=== PATIENT | male | born 2000 | race American Indian/Alaskan Native ===

== ENCOUNTER 2021-11-08 11:09 | Inpatient (IN) | payer SELFPAY ==
--- NOTE | 2021-11-08 11:33 | Emergency Department Report ---
HPI - General Chief Complaint: Chest Pain Time Seen by Provider: 11/08/21 11:25 - HPI HPI: 30 minutes of pleuritic right anterior nonradiating sharp moderate to severe chest pain not associated with any nausea diaphoresis shortness of breath. He does report a mild cough with this that is dry, nonproductive. He denies nausea vomiting fever chills or any other associated symptoms. Breathing makes it worse and nothing makes it better he has taken no medicines for this. He has a family history remarkable for DVTs on her mother side. ED Past Medical Hx - Past Medical History Previous Medical History?: No - Surgical History Past Surgical History?: No - Family History Family history: other (Thromboembolic disease) - Social History Smoking Status: Never Smoker Substance Use Type: None - Medications Home Medications: Home Medications Medication Instructions Recorded Confirmed Last Taken Type Ibuprofen [Motrin] 600 mg PO Q6H PRN 10 Days #40 11/08/21 Unknown Rx tablet ED Review of Systems ROS: Stated complaint: CHEST PAIN Other details as noted in HPI Other: All other systems reviewed and negative. Physical Exam - Physical Exam Vital Signs: Vital Signs 11/08/21 11:21 Temperature 97.7 F Pulse Rate 80 Respiratory 18 Rate Blood Pressure 115/75 [Right] O2 Sat by Pulse 97 Oximetry Physical Exam: Physical Exam: Constitutional: AAOX3. No acute distress. No diaphoresis. HENT: Normocephalic. Pupils equal and reactive. No throat edema or erythema. Neck: No neck rigidity or tenderness. Cardiovascular: Heart sounds: No murmur. Normal rate and regular rhythm. Pulses: Intact distal pulses. Lungs: No wheezing or rales. Chest wall: No tenderness. Abdominal: No distension. No mass/pulsatile mass. No abdominal tenderness, guarding nor rebound. Musculoskeletal: Normal range of motion. No edema, No calf TTP. Skin: Warm and dry. Neurological: Alert and oriented to person, place, and time. Psychiatric: Mood and affect normal. Normal cognition and memory. Normal judgement. ED Course Vital Signs 11/08/21 11:21 Temperature 97.7 F Pulse Rate 80 Respiratory 18 Rate Blood Pressure 115/75 [Right] O2 Sat by Pulse 97 Oximetry - Reevaluation(s) Reevaluation #1: 11/08/21 12:01 EKG done interpreted at 11:47 AM showed a rate of 67, normal. The rhythm is sinus rhythm, normal. There is ST segment elevation diffusely consistent with possible pericarditis. There is minimal [place] depression. Reevaluation #2: 11/08/21 13:06 The patient CBC chemistries D-dimer and chest x-ray are all within normal limits. His EKG suspicious for pericarditis but he says that his pain is completely gone at this time. I will discharge him he will follow-up with his PCP as soon as possible. I will put him on Motrin 600 mg for 10 days. ED Medical Decision Making - Lab Data Result diagrams: 11/08/21 11:34 11/08/21 11:34 Critical care attestation.: If time is entered above; I have spent that time in minutes in the direct care of this critically ill patient, excluding procedure time. ED Disposition Clinical Impression: Chest pain Disposition: 01 HOME / SELF CARE / HOMELESS Is pt being admited?: No Does the pt Need Aspirin: No Condition: Stable Instructions: Nonspecific Chest Pain, Adult Prescriptions: Ibuprofen [Motrin] 600 mg PO Q6H PRN 10 Days #40 tablet PRN Reason: Pain Time of Disposition: 13:10 Print Language: ETHIOPIAN
[2021-11-08] MEDS ORDERED: KETOROLAC 30 MG/1 ML INJ IV SCH (12:30)
[2021-11-08 12:38] LABS: Eosinophils # (Auto) 0.1 K/mm3 (0.0-0.4); Eosinophils % (Auto) 3.6 % (0.0-4.3); Hematocrit 45.3 % (35.5-45.6); Hemoglobin 15.4 gm/dl (11.8-15.2); Lymphocytes # (Auto) 1.6 K/mm3 (1.2-5.4); Lymphocytes % (Auto) 39.6 % (13.4-35.0); Mean Corpuscular HGB Conc 34 % (32-34); Mean Corpuscular Volume 88 fl (84-94); Monocytes # (Auto) 0.3 K/mm3 (0.0-0.8); Monocytes % (Auto) 7.4 % (0.0-7.3); Platelet Count 238 K/mm3 (140-440); Red Blood Count 5.16 M/mm3 (3.65-5.03); Red Cell Distribution Width 13.6 % (13.2-15.2)
[2021-11-08 12:39] LABS: Alanine Aminotransferase 9 units/L (7-56); Albumin 4.3 g/dL (3.9-5); BUN/Creatinine Ratio 19; Blood Urea Nitrogen 17 mg/dL (9-20); Hemolysis Index 26
--- NOTE | 2021-11-08 13:36 | XRay Report ---
CHEST 1 VIEW INDICATION / CLINICAL INFORMATION: Chest Pain. COMPARISON: None available. FINDINGS: SUPPORT DEVICES: None. HEART / MEDIASTINUM: No significant abnormality. LUNGS / PLEURA: Large right pneumothorax displacement of the pleural surface measuring up to 6.2 cm. Lungs otherwise clear. Minimal effacement of the right cardiac margin suggested. BONES: No significant osseous abnormality. ADDITIONAL FINDINGS: No significant additional findings. IMPRESSION: 1. Large right pneumothorax minimal tension component not excluded. CRITICAL RESULT Time of Discovery (PARACHUTE SUPERVISOR/CDT): 12:30 Time of Communication (PARACHUTE SUPERVISOR/CDT): 1231 Licensed Practitioner Receiving Report: Dr. Brown Read-Back Performed: Yes. Signer Name: Shlomo Thomas II, MD Signed: 11/08/2021 1:32 PM Workstation Name: [id number]
[2021-11-08] MEDS ORDERED: LIDOCAINE 1%/EPINEPHRINE 1:100,000 VIAL (20 ML) INFILTRATI NR (14:00)
[2021-11-08] MEDS ORDERED: KETAMINE 500 MG/5 ML VIAL MDV IV ONE (14:14)
[2021-11-08] MEDS ORDERED: LORazepam 2 MG/ML VIAL IV ONE (14:26)
[2021-11-08] MEDS ORDERED: LIDOCAINE 2%/EPINEPHRINE 1:100,000 VIAL (20 ML) INFILTRATI ONE (15:00)
[2021-11-08] MEDS ORDERED: MORPHINE 2 MG/1 ML INJ IV ONE ×2 (15:55→18:00)
[2021-11-08] MEDS ORDERED: ONDANSETRON 4 MG/2 ML INJ IV ONE (15:55)
[2021-11-08] MEDS ORDERED: ALBUTEROL 2.5 MG/3 ML NEBU IH PRN (16:03)
[2021-11-08] MEDS ORDERED: ONDANSETRON 4 MG/2 ML INJ IV PRN (16:03)
[2021-11-08] MEDS ORDERED: ACETAMINOPHEN 325 MG TAB PO PRN (16:03)
--- NOTE | 2021-11-08 16:03 | History and Physical Report ---
History of Present Illness Chief complaint: My chest hurts on the right History of present illness: 21 YO Male with no past medical history presents to ED for evaluation. Patient reports "my chest hurts on the right and is hard to breathe". Patient states that he has experienced a sudden onset right-sided chest pain with concomitant shortness of breath. EMS was notified and upon arrival the patient was found to be in distress and subsequent transported to [facility] for further care and evaluation of the aforementioned symptoms. The patient was seen and evaluated in the emergency department. All lab and imaging studies reviewed. Patient underwent chest x-ray and was found to have large right pneumothorax comprising 90% of the right lung volume. Patient underwent chest tube placement in the emergency department with improvement in symptoms. Patient placed on continuous low wall suction. Patient admitted to medical floor due to increased risk of worsening sepsis. Patient denies fever, chills, chest pain, palpitation, productive cough, skin rash, recent ill contacts, trauma, or known exposure to COVID-19. No prior admission for review. No medication listed at time of admission for reconciliation. Advanced care planning conducted in the ED. Past History Past Medical History: No medical history, other (Reviewed) Past Surgical History: No surgical history, Other (Reviewed) Social history: single. denies: smoking, alcohol abuse, prescription drug abuse Family history: hypertension Medications and Allergies Allergies Allergy/AdvReac Type Severity Reaction Status Date / Time No Known Allergies Allergy Verified 11/08/21 12:31 Home Medications Medication Instructions Recorded Confirmed Last Taken Type Ibuprofen [Motrin] 600 mg PO Q6H PRN 10 Days #40 11/08/21 Unknown Rx tablet Review of Systems Constitutional: no weight loss, no weight gain, no chills, no sweats Ears, nose, mouth and throat: no ear pain, no nasal congestion, no nasal discharge, no sinus pressure Cardiovascular: chest pain, shortness of breath, other (Right-sided chest pain) Respiratory: cough, no cough with sputum, no excessive sputum, no hemoptysis Gastrointestinal: no abdominal pain, no nausea, no diarrhea, no constipation Genitourinary Male: no dysuria, no hematuria, no flank pain, no discharge, no urinary frequency, no nocturia Rectal: no pain, no incontinence, no bleeding Musculoskeletal: no neck stiffness, no neck pain, no shooting arm pain, no arm numbness/tingling, no low back pain, no shooting leg pain, no leg numbness/tingling Integumentary: no rash, no pruritis, no redness, no wounds, no jaundice, no boils Neurological: no head injury, no transient paralysis, no weakness, no parathesias, no numbness, no tingling Psychiatric: no anxiety, no insomnia, no hypersomnia, no change in libido, no disorientation Endocrine: no cold intolerance, no heat intolerance, no excessive thirst, no polydipsia, no polyuria, no nocturia, no excessive sweating, no flushing Hematologic/Lymphatic: no easy bruising, no easy bleeding Allergic/Immunologic: no urticaria, no allergic rhinitis, no wheezing Exam - Constitutional Vitals: Temp Pulse Resp BP Pulse Ox 98.1 F 85 17 108/64 100 11/08/21 11:33 11/08/21 15:48 11/08/21 15:48 11/08/21 15:48 11/08/21 15:36 General appearance: Present: mild distress - EENT Eyes: Present: PERRL ENT: hearing intact, clear oral mucosa - Neck Neck: Present: supple, normal ROM - Respiratory Respiratory effort: normal Respiratory: right: diminished - Cardiovascular Heart Sounds: Present: S1 & S2. Absent: rub, click - Extremities Extremities: pulses symmetrical, No edema Peripheral Pulses: within normal limits - Abdominal General gastrointestinal: Present: soft, non-tender, non-distended, normal bowel sounds Male genitourinary: Present: normal - Integumentary Integumentary: Present: clear, warm, dry - Musculoskeletal Musculoskeletal: gait normal, strength equal bilaterally - Psychiatric Psychiatric: appropriate mood/affect, intact judgment & insight - Neurologic Neurologic: CNII-XII intact, moves all extremities HEART Score - HEART Score Troponin: Troponin T < 0.010 ng/mL (0.00-0.029) 11/08/21 11:34 Results - Labs CBC & Chem 7: 11/08/21 11:34 11/08/21 11:34 Labs: Abnormal lab results 11/08/21 Range/Units 11:34 WBC 4.0 L (4.5-11.0) K/mm3 RBC 5.16 H (3.65-5.03) M/mm3 Hgb 15.4 H (11.8-15.2) gm/dl Lymph % (Auto) 39.6 H (13.4-35.0) % [place] % (Auto) 7.4 H (0.0-7.3) % Assessment and Plan - Patient Problems (1) Pneumothorax, right Current Visit: Yes Status: Acute Plan to address problem: Chest x-ray, chest tube placement in the emergency department. Chest tube placed to continuous low wall suction, supportive care. Monitor chest tube drainage. Repeat chest x-ray in a.m. Surgery team consulted in ED. (2) DVT prophylaxis Current Visit: Yes Status: Acute Plan to address problem: SCD to bilateral lower extremities while in bed (3) Advance care planning Current Visit: Yes Status: Acute Plan to address problem: Disease education data, care plan discussed, diagnosis discussed, prognosis discussed, patient is full code. Patient and mother counseled regarding current prognosis. Patient and mother acknowledged understanding and agreement with care plan, +30 minutes. (4) Preventative health care Current Visit: Yes Status: Acute Plan to address problem: Patient counseled regarding risk factor reduction, risk factor reduction, +30 mi nutes.
--- NOTE | 2021-11-08 16:06 | XRay Report ---
CHEST 1 VIEW 11/08/2021 2:59 PM INDICATION / CLINICAL INFORMATION: Right chest tube for PTX. COMPARISON: 11/08/21 11:41 AM FINDINGS: SUPPORT DEVICES: Interval placement of smallbore right pleural tube. HEART / MEDIASTINUM: Stable. LUNGS / PLEURA: No significant pulmonary or pleural abnormality. Interval resolution of large right p neumothorax. ADDITIONAL FINDINGS: No significant additional findings. IMPRESSION: 1. Interval resolution of large right pneumothorax after placement of right pleural tube. Signer Name: Glen Flores MD Signed: 11/08/2021 4:01 PM Workstation Name: [id number]
[2021-11-08] MEDS: HYDROmorphone 0.5 MG/0.5 ML INJ IV PRN (21:46)
[2021-11-09] MEDS: oxyCODONE /ACETAMINOPHEN 5-325MG TAB PO PRN ×2 (03:18→19:10)
[2021-11-09 05:13] LABS: BUN/Creatinine Ratio 18; Blood Urea Nitrogen 18 mg/dL (9-20); Calcium 8.8 mg/dL (8.4-10.2); Hemolysis Index 21
[2021-11-09] MEDS: HYDROmorphone 0.5 MG/0.5 ML INJ IV PRN (10:11)
--- NOTE | 2021-11-09 10:50 | Progress Note ---
Assessment and Plan Assessment and plan: 21 YO Male with no past medical history presents to ED for evaluation of sudden onset right-sided chest pain and shortness of breath. EMS was notified and upon arrival the patient was found to be in distress and subsequent transported to [facility] for further care and evaluation. The patient was seen and evaluated in the emergency department. All lab and imaging studies reviewed. Patient underwent chest x-ray and was found to have pneumothorax. Right pneumothorax. 11/09/2021. Chest x-ray revealed large right pneumothorax comprising 90% of the right lung volume. Patient underwent chest tube placement in the emergency department with improvement in symptoms. Patient placed on continuous low wall suction. Follow-up serial chest x-ray. Await surgery consultation for further evaluation. History Interval history: No new issues overnight Hospitalist Physical - Constitutional Vitals: Temp Pulse Resp BP Pulse Ox 98.1 F 92 H 20 102/69 96 11/09/21 10:04 11/09/21 10:04 11/09/21 10:04 11/09/21 10:04 11/09/21 10:04 General appearance: Present: no acute distress - EENT Eyes: Present: PERRL, EOM intact ENT: hearing intact, clear oral mucosa, dentition normal - Neck Neck: Present: supple, normal ROM - Respiratory Respiratory effort: normal Respiratory: bilateral: CTA - Cardiovascular Rhythm: regular Heart Sounds: Present: S1 & S2. Absent: gallop, rub - Extremities Extremities: no ischemia, No edema, Full ROM - Abdominal General gastrointestinal: soft, non-tender, non-distended, normal bowel sounds - Integumentary Integumentary: Present: clear, warm, dry - Neurologic Neurologic: CNII-XII intact, moves all extremities HEART Score - HEART Score Troponin: Troponin T < 0.010 ng/mL (0.00-0.029) 11/08/21 11:34 Results - Labs CBC & Chem 7: 11/08/21 11:34 11/09/21 04:37 Labs: Laboratory Last Values WBC 4.0 K/mm3 (4.5-11.0) L 11/08/21 11:34 RBC 5.16 M/mm3 (3.65-5.03) H 11/08/21 11:34 Hgb 15.4 gm/dl (11.8-15.2) H 11/08/21 11:34 Hct 45.3 % (35.5-45.6) 11/08/21 11:34 MCV 88 fl (84-94) 11/08/21 11:34 MCH 30 pg (28-32) 11/08/21 11:34 MCHC 34 % (32-34) 11/08/21 11:34 RDW 13.6 % (13.2-15.2) 11/08/21 11:34 Plt Count 238 K/mm3 (140-440) 11/08/21 11:34 Lymph % (Auto) 39.6 % (13.4-35.0) H 11/08/21 11:34 [place] % (Auto) 7.4 % (0.0-7.3) H 11/08/21 11:34 Eos % (Auto) 3.6 % (0.0-4.3) 11/08/21 11:34 Baso % (Auto) Network Engineer Administrator 11/08/21 11:34 Lymph # (Auto) 1.6 K/mm3 (1.2-5.4) 11/08/21 11:34 [place] # (Auto) 0.3 K/mm3 (0.0-0.8) 11/08/21 11:34 Eos # (Auto) 0.1 K/mm3 (0.0-0.4) 11/08/21 11:34 Baso # (Auto) 0.0 K/mm3 (0.0-0.1) 11/08/21 11:34 Seg Neutrophils % 48.3 % (40.0-70.0) 11/08/21 11:34 Seg Neutrophils # 2.0 K/mm3 (1.8-7.7) 11/08/21 11:34 D-Dimer 138.87 ng/mlDDU (0-234) 11/08/21 11:34 Sodium 136 mmol/L (137-145) L 11/09/21 04:37 Potassium 4.2 mmol/L (3.6-5.0) 11/09/21 04:37 Chloride 101.5 mmol/L (98-107) 11/09/21 04:37 Carbon Dioxide 26 mmol/L (22-30) 11/09/21 04:37 Anion Gap 13 mmol/L 11/09/21 04:37 BUN 18 mg/dL (9-20) 11/09/21 04:37 Creatinine 1.0 mg/dL (0.8-1.3) 11/09/21 04:37 Estimated GFR > 60 ml/min 11/09/21 04:37 BUN/Creatinine Ratio 18 % 11/09/21 04:37 Glucose 136 mg/dL (75-100) H 11/09/21 04:37 Calcium 8.8 mg/dL (8.4-10.2) 11/09/21 04:37 Total Bilirubin 0.30 mg/dL (0.1-1.2) 11/08/21 11:34 AST 18 units/L (5-40) 11/08/21 11:34 ALT 9 units/L (7-56) 11/08/21 11:34 Alkaline Phosphatase 80 units/L (35-129) 11/08/21 11:34 Troponin T < 0.010 ng/mL (0.00-0.029) 11/08/21 11:34 Total Protein 6.9 g/dL (6.3-8.2) 11/08/21 11:34 Albumin 4.3 g/dL (3.9-5) 11/08/21 11:34 Albumin/Globulin Ratio 1.7 % 11/08/21 11:34 Moser/IV: Voiding Method Urinal Active Medications - Current Medications Current Medications: Generic Name Dose Route Start Last Admin Trade Name Freq PRN Reason Stop Dose Admin Acetaminophen 650 mg 11/08/21 16:03 Acetaminophen 325 Mg Tab PO Q4H PRN Pain MILD(1-3)/Fever >100.5/FERNANDEZ Albuterol 2.5 mg 11/08/21 16:03 Albuterol 2.5 Mg/3 Ml Nebu IH Q4HRT PRN Shortness Of Breath Hydromorphone HCl 0.5 mg 11/08/21 16:03 11/09/21 10:11 Hydromorphone 0.5 Mg/0.5 Ml Inj IV 0.5 mg Q8H PRN Administration Pain , Severe (7-10) Ondansetron HCl 4 mg 11/08/21 16:03 Ondansetron 4 Mg/2 Ml Inj IV Q8H PRN Nausea And Vomiting Oxycodone/Acetaminophen 1 tab 11/08/21 16:03 11/09/21 03:18 Oxycodone /Acetaminophen 5-325mg Tab PO 1 tab Q6H PRN Administration Pain, Moderate (4-6) Sodium Chloride 10 ml 11/08/21 22:00 11/09/21 09:02 Sodium Chloride 0.9% 10 Ml Flush Syringe IV 10 ml BID JOHN Administration
[2021-11-09] MEDS ORDERED: HYDROmorphone 2 MG/1 ML INJ IV STA (14:21)
[2021-11-09] MEDS ORDERED: LORazepam 2 MG/ML VIAL IV STA (14:22)
--- NOTE | 2021-11-09 14:30 | XRay Report ---
CHEST 1 VIEW INDICATION: chest tube. COMPARISON: Yesterday FINDINGS: SUPPORT DEVICES: None. HEART: Within normal limits. LUNGS/PLEURA: New large right pneumothroax without mediastinal shift. Clear left lung. ADDITIONAL FINDINGS: None. IMPRESSION: 1. Large right pneumothorax. COMMUNICATION: Time of Communication (CARTOGRAPHY SUPERVISOR/CDT): 1:26 PM Licensed Practitioner Receiving Report: Nurse Small Signer Name: Rusty Varma MD Signed: 11/09/2021 2:26 PM Workstation Name: [id number]
--- NOTE | 2021-11-09 15:50 | XRay Report ---
CHEST 1 VIEW INDICATION: chest tube placement. COMPARISON: Earlier today FINDINGS: SUPPORT DEVICES: Right-sided chest tube has been placed with tip terminating above the right hilum. HEART: Within normal limits. LUNGS/PLEURA: Mild streaky airspace disease in the right lung with trace residual right apical pneumo thorax. Left lung remains clear. ADDITIONAL FINDINGS: None. IMPRESSION: 1. Significantly improved exam following right-sided chest tube placement. Signer Name: Rusty Varma MD Signed: 11/09/2021 3:46 PM Workstation Name: [id number]
--- NOTE | 2021-11-09 16:34 | Consultation ---
History of Present Illness Consult date: 11/09/21 Chief complaint: Chest pain - History of present illness History of present illness: Surgery consulted for 21-year-old male presented to the emergency room yesterday with sudden right-sided chest pain. Patient had a chest x-ray in the emergency room that showed a large right pneumothorax. Patient denies any trauma or previous history of pneumothorax and this is assumed to be spontaneous pneumothorax. 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 Patient had a percutaneous chest tube placed in the emergency room after which his follow-up x-ray showed full expansion of his lung and right side. Patient had an x-ray today at 1:30 PM that I reviewed that showed that the previous tube had been dislodged and he again had a large right pneumothorax. I thought it best to discuss with him and his mother who was in the room that he needs a chest tube to relieve the pneumothorax. Patient did state that he noticed that he began having chest pain and difficulty breathing sometime this morning. Past History Past Medical History: No medical history, other (Reviewed) Past Surgical History: No surgical history, Other (Reviewed) Social history: single. denies: smoking, alcohol abuse, prescription drug abuse Family history: hypertension Medications and Allergies Allergies Allergy/AdvReac Type Severity Reaction Status Date / Time No Known Allergies Allergy Verified 11/08/21 12:31 Home Medications Medication Instructions Recorded Confirmed Last Taken Type No Known Home Medications [No 11/09/21 11/09/21 Unknown History Reported Home Medications] Active Meds: Active Medications Acetaminophen (Acetaminophen 325 Mg Tab) 650 mg PO Q4H PRN PRN Reason: Pain MILD(1-3)/Fever >100.5/FERNANDEZ Albuterol (Albuterol 2.5 Mg/3 Ml Nebu) 2.5 mg IH Q4HRT PRN PRN Reason: Shortness Of Breath Hydromorphone HCl (Hydromorphone 0.5 Mg/0.5 Ml Inj) 0.5 mg IV Q8H PRN PRN Reason: Pain , Severe (7-10) Last Admin: 11/09/21 10:11 Dose: 0.5 mg Morphine Sulfate (Morphine 2 Mg/1 Ml Inj) 2 mg IV Q4H PRN PRN Reason: Pain, Moderate (4-6) Ondansetron HCl (Ondansetron 4 Mg/2 Ml Inj) 4 mg IV Q8H PRN PRN Reason: Nausea And Vomiting Oxycodone/Acetaminophen (Oxycodone /Acetaminophen 5-325mg Tab) 1 tab PO Q6H PRN PRN Reason: Pain, Moderate (4-6) Last Admin: 11/09/21 03:18 Dose: 1 tab Sodium Chloride (Sodium Chloride 0.9% 10 Ml Flush Syringe) 10 ml IV BID JOHN Last Admin: 11/09/21 09:02 Dose: 10 ml Review of Systems All systems: negative - Cardiovascular chest pain Exam Vital Signs Temp Pulse Resp BP Pulse Ox 97.7 F 80 18 115/75 97 11/08/21 11:21 11/08/21 11:21 11/08/21 11:21 11/08/21 11:21 11/08/21 11:21 - General physical appearance Positive: well developed, no distress, moderate pain - Eyes Positive: PERRL - ENT Positive: no hearing loss - Respiratory Positive: normal expansion, normal respiratory effort, other (Percutaneous chest tube secured to patient's right side, when it was removed there were less than 6 cm from the level of the skin and securing suture) - Cardiovascular Heart Sounds: Present: S1 & S2 - Extremities Extremities: no ischemia - Abdomen Abdomen: Present: soft. Absent: tender Results - Labs 11/08/21 11:34 11/09/21 04:37 Abnormal lab results 11/09/21 Range/Units 04:37 Sodium 136 L (137-145) mmol/L Glucose 136 H (75-100) mg/dL Diabetes panel 11/09/21 Range/Units 04:37 Sodium 136 L (137-145) mmol/L Potassium 4.2 (3.6-5.0) mmol/L Chloride 101.5 (98-107) mmol/L Carbon Dioxide 26 (22-30) mmol/L BUN 18 (9-20) mg/dL Creatinine 1.0 (0.8-1.3) mg/dL Glucose 136 H (75-100) mg/dL Calcium 8.8 (8.4-10.2) mg/dL Calcium panel 11/09/21 Range/Units 04:37 Calcium 8.8 (8.4-10.2) mg/dL Pituitary panel 11/09/21 Range/Units 04:37 Sodium 136 L (137-145) mmol/L Potassium 4.2 (3.6-5.0) mmol/L Chloride 101.5 (98-107) mmol/L Carbon Dioxide 26 (22-30) mmol/L BUN 18 (9-20) mg/dL Creatinine 1.0 (0.8-1.3) mg/dL Glucose 136 H (75-100) mg/dL Calcium 8.8 (8.4-10.2) mg/dL Adrenal panel 11/09/21 Range/Units 04:37 Sodium 136 L (137-145) mmol/L Potassium 4.2 (3.6-5.0) mmol/L Chloride 101.5 (98-107) mmol/L Carbon Dioxide 26 (22-30) mmol/L BUN 18 (9-20) mg/dL Creatinine 1.0 (0.8-1.3) mg/dL Glucose 136 H (75-100) mg/dL Calcium 8.8 (8.4-10.2) mg/dL - Imaging Chest x-ray: report reviewed, image reviewed Assessment and Plan 21-year-old male with spontaneous pneumothorax. Afebrile and stable with repeat pneumothorax after percutaneous chest tube has been dislodged. Patient needs traditional thoracostomy to reexpand his lung. Discussed patient's pathology and prognosis in detail with him and his mother. They expressed understanding. Patient signed consent form for chest tube placed on the right.
--- NOTE | 2021-11-09 16:36 | Procedure Note ---
Date of procedure: 11/09/21 Pre-op diagnosis: Right pneumothorax Post-op diagnosis: same Procedure: Placement of right sided 24 Sur[place]e chest tube Chest tube placed under sterile conditions between the fourth and fifth intercostal space. It was noted to be 16 cm michelle at the level of the skin. It was secured both suture, Vaseline gauze and dry gauze and tape. Repeat chest x- ray showed almost full expansion of the lung with a chest tube in the thoracic cavity. Patient tolerated the procedure well. Nurse Staci was in the room with the patient at the time of procedure. Anesthesia: local Surgeon: ACE BRICE Estimated blood loss: minimal Pathology: none Condition: stable Disposition: no change
[2021-11-09] MEDS: MORPHINE 2 MG/1 ML INJ IV PRN (22:46)
[2021-11-10] MEDS: MORPHINE 2 MG/1 ML INJ IV PRN ×2 (02:17→09:16)
[2021-11-10] MEDS: HYDROmorphone 0.5 MG/0.5 ML INJ IV PRN (05:19)
--- NOTE | 2021-11-10 08:58 | XRay Report ---
CHEST - 1 VIEW INDICATION: f/u pneumothorax COMPARISON: Yesterday FINDINGS: SUPPORT DEVICES: Stable support device positioning. HEART: Stable cardiomediastinal silhouette. LUNGS/PLEURA: Clear right lung with tiny residual right apical pneumothorax. ADDITIONAL FINDINGS: None. IMPRESSION: Improved exam. Streaky airspace opacities have resolved and the right lung is now clear. Signer Name: Rusty Varma MD Signed: 11/10/2021 8:54 AM Workstation Name: [id number]
--- NOTE | 2021-11-10 10:29 | Progress Note ---
Assessment and Plan Assessment and plan: 21 YO Male with no past medical history presents to ED for evaluation of sudden onset right-sided chest pain and shortness of breath. EMS was notified and upon arrival the patient was found to be in distress and subsequent transported to [facility] for further care and evaluation. The patient was seen and evaluated in the emergency department. All lab and imaging studies reviewed. Patient underwent chest x-ray and was found to have pneumothorax. Right pneumothorax. 11/09/2021. Chest x-ray revealed large right pneumothorax comprising 90% of the right lung volume. Patient underwent chest tube placement in the emergency department with improvement in symptoms. Patient placed on continuous low wall suction. Follow-up serial chest x-ray. Await surgery consultation for further evaluation. 11/10/2021. The patient's previous chest tube was discharged yesterday and had to be replaced by surgery. Chest tube was placed under sterile conditions between the third and fifth intercostal space. Repeat chest x-ray showed almost full expansion of the lung with a chest tube in the thoracic cavity. Patient tolerated the procedure well. History Interval history: No new issues overnight Hospitalist Physical - Constitutional Vitals: Temp Pulse Resp BP Pulse Ox 98.6 F 91 H 18 116/69 100 11/10/21 05:07 11/10/21 05:07 11/10/21 09:16 11/10/21 05:07 11/10/21 07:58 General appearance: Present: no acute distress - EENT Eyes: Present: PERRL, EOM intact ENT: hearing intact, clear oral mucosa, dentition normal - Neck Neck: Present: supple, normal ROM - Respiratory Respiratory effort: normal Respiratory: bilateral: CTA - Cardiovascular Rhythm: regular Heart Sounds: Present: S1 & S2. Absent: gallop, rub - Extremities Extremities: no ischemia, No edema, Full ROM - Abdominal General gastrointestinal: soft, non-tender, non-distended, normal bowel sounds - Integumentary Integumentary: Present: clear, warm, dry - Neurologic Neurologic: CNII-XII intact, moves all extremities HEART Score - HEART Score Troponin: Troponin T < 0.010 ng/mL (0.00-0.029) 11/08/21 11:34 Results - Labs CBC & Chem 7: 11/08/21 11:34 11/09/21 04:37 Labs: Laboratory Last Values WBC 4.0 K/mm3 (4.5-11.0) L 11/08/21 11:34 RBC 5.16 M/mm3 (3.65-5.03) H 11/08/21 11:34 Hgb 15.4 gm/dl (11.8-15.2) H 11/08/21 11:34 Hct 45.3 % (35.5-45.6) 11/08/21 11:34 MCV 88 fl (84-94) 11/08/21 11:34 MCH 30 pg (28-32) 11/08/21 11:34 MCHC 34 % (32-34) 11/08/21 11:34 RDW 13.6 % (13.2-15.2) 11/08/21 11:34 Plt Count 238 K/mm3 (140-440) 11/08/21 11:34 Lymph % (Auto) 39.6 % (13.4-35.0) H 11/08/21 11:34 [place] % (Auto) 7.4 % (0.0-7.3) H 11/08/21 11:34 Eos % (Auto) 3.6 % (0.0-4.3) 11/08/21 11:34 Baso % (Auto) Mechanical Assembler 11/08/21 11:34 Lymph # (Auto) 1.6 K/mm3 (1.2-5.4) 11/08/21 11:34 [place] # (Auto) 0.3 K/mm3 (0.0-0.8) 11/08/21 11:34 Eos # (Auto) 0.1 K/mm3 (0.0-0.4) 11/08/21 11:34 Baso # (Auto) 0.0 K/mm3 (0.0-0.1) 11/08/21 11:34 Seg Neutrophils % 48.3 % (40.0-70.0) 11/08/21 11:34 Seg Neutrophils # 2.0 K/mm3 (1.8-7.7) 11/08/21 11:34 D-Dimer 138.87 ng/mlDDU (0-234) 11/08/21 11:34 Sodium 136 mmol/L (137-145) L 11/09/21 04:37 Potassium 4.2 mmol/L (3.6-5.0) 11/09/21 04:37 Chloride 101.5 mmol/L (98-107) 11/09/21 04:37 Carbon Dioxide 26 mmol/L (22-30) 11/09/21 04:37 Anion Gap 13 mmol/L 11/09/21 04:37 BUN 18 mg/dL (9-20) 11/09/21 04:37 Creatinine 1.0 mg/dL (0.8-1.3) 11/09/21 04:37 Estimated GFR > 60 ml/min 11/09/21 04:37 BUN/Creatinine Ratio 18 % 11/09/21 04:37 Glucose 136 mg/dL (75-100) H 11/09/21 04:37 Calcium 8.8 mg/dL (8.4-10.2) 11/09/21 04:37 Total Bilirubin 0.30 mg/dL (0.1-1.2) 11/08/21 11:34 AST 18 units/L (5-40) 11/08/21 11:34 ALT 9 units/L (7-56) 11/08/21 11:34 Alkaline Phosphatase 80 units/L (35-129) 11/08/21 11:34 Troponin T < 0.010 ng/mL (0.00-0.029) 11/08/21 11:34 Total Protein 6.9 g/dL (6.3-8.2) 11/08/21 11:34 Albumin 4.3 g/dL (3.9-5) 11/08/21 11:34 Albumin/Globulin Ratio 1.7 % 11/08/21 11:34 Moser/IV: Voiding Method Urinal Active Medications - Current Medications Current Medications: Generic Name Dose Route Start Last Admin Trade Name Freq PRN Reason Stop Dose Admin Acetaminophen 650 mg 11/08/21 16:03 Acetaminophen 325 Mg Tab PO Q4H PRN Pain MILD(1-3)/Fever >100.5/FERNANDEZ Albuterol 2.5 mg 11/08/21 16:03 Albuterol 2.5 Mg/3 Ml Nebu IH Q4HRT PRN Shortness Of Breath Hydromorphone HCl 0.5 mg 11/08/21 16:03 11/10/21 05:19 Hydromorphone 0.5 Mg/0.5 Ml Inj IV 0.5 mg Q8H PRN Administration Pain , Severe (7-10) Morphine Sulfate 2 mg 11/09/21 16:26 11/10/21 09:16 Morphine 2 Mg/1 Ml Inj IV 2 mg Q4H PRN Administration Pain, Moderate (4-6) Ondansetron HCl 4 mg 11/08/21 16:03 11/09/21 22:30 Ondansetron 4 Mg/2 Ml Inj IV 4 mg Q8H PRN Administration Nausea And Vomiting Oxycodone/Acetaminophen 1 tab 11/08/21 16:03 11/09/21 19:10 Oxycodone /Acetaminophen 5-325mg Tab PO 1 tab Q6H PRN Administration Pain, Moderate (4-6) Sodium Chloride 10 ml 11/08/21 22:00 11/10/21 09:17 Sodium Chloride 0.9% 10 Ml Flush Syringe IV 10 ml BID JOHN Administration
[2021-11-10] MEDS: oxyCODONE /ACETAMINOPHEN 5-325MG TAB PO PRN ×2 (13:00→18:39)
[2021-11-10] MEDS ORDERED: LIDOCAINE (2%) 20 MG/1 ML VIAL 20 ML MDV INFILTRATI ONE (15:00)
--- NOTE | 2021-11-10 17:45 | Progress Note ---
Assessment and Plan 21-year-old male with spontaneous pneumothorax. Afebrile and stable with repeat pneumothorax after percutaneous chest tube has been dislodged. Minimal residual apical pneumothorax with chest tube in place. Will place on waterseal. If p atient has any distress we will get stat chest x-ray. If pneumothorax has returned will return to suction. If patient does well overnight will repeat chest x-ray in a.m. If no significant change and patient able to maintain lung insufflation there is a possibility we can DC chest tube tomorrow. Subjective Date of service: 11/10/21 Narrative: No acute events overnight. Patient says that he is breathing better although he has some discomfort from the chest tube. Objective Vital Signs - 12hr 11/10/21 11/10/21 11/10/21 07:58 09:16 13:00 Respiratory 18 18 Rate O2 Sat by Pulse 100 Oximetry 11/10/21 14:00 Respiratory 18 Rate O2 Sat by Pulse Oximetry - General physical appearance well developed, no distress, no pain - Eyes PERRL - Respiratory normal expansion, normal respiratory effort, other (Chest tube in place, no airleak) - Abdomen soft, not tender - Labs 11/08/21 11:34 11/09/21 04:37
[2021-11-11] MEDS: oxyCODONE /ACETAMINOPHEN 5-325MG TAB PO PRN ×2 (01:14→08:51)
--- NOTE | 2021-11-11 08:32 | XRay Report ---
XR chest 1V ap INDICATION / CLINICAL INFORMATION: f/u chest tube on water seal. COMPARISON: Radiograph from yesterday. FINDINGS: SUPPORT DEVICES: Right thoracostomy tube projects in stable position. HEART /PULMONARY VASCULATURE: No significant abnormality. LUNGS / PLEURA: Lungs are clear. Tiny right apical pneumothorax is unchanged. IMPRESSION: Stable tiny right apical pneumothorax with chest tube in place. Signer Name: Irineo Aguayo MD Signed: 11/11/2021 8:28 AM Workstation Name: [id number]
--- NOTE | 2021-11-11 11:26 | Discharge Summary ---
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 EMS was notified and upon arrival the patient was found to be in distress and subsequent transported to [facility] for further care and evaluation. The patient was seen and evaluated in the emergency department. All lab and imaging studies reviewed. Patient underwent chest x-ray and was found to have pneumothorax. The patient was admitted with diagnosis of large right pneumothorax and acute hypoxic respiratory failure. Hospital course: 11/09/2021. Chest x-ray revealed large right pneumothorax comprising 90% of the right lung volume. Patient underwent chest tube placement in the emergency department with improvement in symptoms. Patient placed on continuous low wall suction. Follow-up serial chest x-ray. Await surgery consultation for further evaluation. 11/10/2021. The patient's previous chest tube was discharged yesterday and had to be replaced by surgery. Chest tube was placed under sterile conditions between the third and fifth intercostal space. Repeat chest x-ray showed almost full expansion of the lung with a chest tube in the thoracic cavity. Patient tolerated the procedure well. 11/11/2021. Chest x-ray this morning reveals small residual apical pneumothorax with chest tube in place. General surgery potentially to discontinue chest tube today. If chest tube is discontinued, patient will discharge home. Dedicated discharge time 35 minutes Disposition: 01 HOME / SELF CARE / HOMELESS Final Discharge Diagnosis (Prints w/discharge instructions): Right pneumothorax, acute hypoxic respiratory failure Core Measure Documentation - Palliative Care Palliative Care/ Comfort Measures: Not Applicable - Core Measures Any of the following diagnoses?: none Exam - Constitutional Vitals: Temp Pulse Resp BP Pulse Ox 98.6 F 71 18 119/60 97 11/11/21 05:20 11/11/21 05:20 11/11/21 05:20 11/11/21 05:20 11/11/21 07:48 General appearance: Present: no acute distress, well-nourished - EENT Eyes: Present: PERRL ENT: hearing intact, clear oral mucosa - Neck Neck: Present: supple, normal ROM - Respiratory Respiratory effort: normal Respiratory: bilateral: CTA - Cardiovascular Heart Sounds: Present: S1 & S2. Absent: rub, click - Extremities Extremities: pulses symmetrical, No edema Peripheral Pulses: within normal limits - Abdominal General gastrointestinal: Present: soft, non-tender, non-distended, normal bowel sounds Male genitourinary: Present: normal - Integumentary Integumentary: Present: clear, warm, dry - Musculoskeletal Musculoskeletal: gait normal, strength equal bilaterally - Psychiatric Psychiatric: appropriate mood/affect, intact judgment & insight - Neurologic Neurologic: CNII-XII intact, moves all extremities Plan Activity: advance as tolerated Diet: regular Wound: per your surgeon's advice Follow up with: PRIMARY CARE, [Primary Care Provider] - 7 Days ACE BRICE MD [Staff Physician] - 7 Days Prescriptions: oxyCODONE /ACETAMINOPHEN [Percocet 5/325 mg] 1 tab PO Q6H PRN #10 tablet PRN Reason: Pain, Moderate (4-6)
[2021-11-11 11:48] VITALS: BP 117/66
--- NOTE | 2021-11-11 15:03 | Progress Note ---
Assessment and Plan 21-year-old male with spontaneous pneumothorax. Afebrile and stable with repeat pneumothorax after percutaneous chest tube has been dislodged. Minimal residual apical pneumothorax with chest tube in place. Minimal apical small pneumothorax on waterseal. Chest tube removed without incident. We will repeat chest x-ray in 4 hours from removal of chest tube. If lung findings unchanged from previous chest x-ray patient okay to be discharged. If there is a small decrease in lung volume and patient remained stable recommend patient get repeat chest x-ray in morning to reevaluate. If there is a significant change in lung volumes patient may need repeat chest tube. Discussed plan with patient and his father who both expressed understanding. Patient lives in [place] discussed that patient may need to drive back to [place]. 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 Subjective Date of service: 11/11/21 Narrative: No acute events overnight. Patient denies any complaints. Patient had a chest x-ray this morning since his chest tube was placed on waterseal yesterday which shows minimal apical pneumothorax has been consistent on previous chest x-ray. Objective Vital Signs - 12hr 11/11/21 11/11/21 11/11/21 05:20 07:48 11:37 Temperature 98.6 F 98.7 F Pulse Rate 71 73 Respiratory 18 16 Rate Blood Pressure 117/66 Blood Pressure 119/60 [Right] O2 Sat by Pulse 100 97 97 Oximetry - General physical appearance well developed, no distress, no pain - Eyes PERRL - ENT no hearing loss - Respiratory normal expansion, normal respiratory effort, other (Chest tube in place on waterseal with no air leak.) - Labs 11/08/21 11:34 11/09/21 04:37 - Imaging Chest x-ray: report reviewed, image reviewed
--- NOTE | 2021-11-11 18:09 | XRay Report ---
CHEST 1 VIEW 11/11/2021 5:44 PM INDICATION / CLINICAL INFORMATION: dc chest tube. COMPARISON: Earlier today at 7:56 AM. FINDINGS: SUPPORT DEVICES: The right chest tube has been removed. HEART / MEDIASTINUM: Unchanged. LUNGS / PLEURA: No significant pulmonary or pleural abnormality. A tiny right apical pneumothorax has not changed significantly. ADDITIONAL FINDINGS: No significant additional findings. IMPRESSION: Tiny right apical pneumothorax has not changed significantly following chest tube removal . Signer Name: Adrian Valadez MD Signed: 11/11/2021 6:05 PM Workstation Name: [id number]
== END 2021-11-11 18:44 | disposition home or self-care (01) | DRG 199 ==
LOC: ED 11:09 → 3A 16:03
PROVIDERS: ADMIT Internal Medicine; ATTEND Hospitalist
PROC: 0W9930Z Drainage of Right Pleural Cavity with Drainage Device, Percutaneous Approach (ICD-10-PCS; principal; 2021-11-09)
DX: J93.83 Other pneumothorax (principal); J96.01 Acute respiratory failure with hypoxia; Z82.49 Family history of ischemic heart disease and other diseases of the circulatory system
CPT/HCPCS: 36415; 71045; 80048; 80053; 84484; 85025; 85379; 93005; G0378; J3490; J1170; J2060; J2270; J2405